=== PATIENT | female | born 1980 | race African-American/Black ===

== ENCOUNTER 2017-10-11 08:28 | Observation (INO) ==
[2017-10-11] MEDS ORDERED: ASPIRIN 325 MG TABLET PO STA (08:58)
[2017-10-11] MEDS ORDERED: ONDANSETRON 4 MG/2 ML VIAL IV PRN ×2 (08:58→11:42)
[2017-10-11] MEDS ORDERED: KETOROLAC 30 MG/1 ML VIAL IV STA (08:58)
[2017-10-11] MEDS ORDERED: SODIUM CHLORIDE 0.9% 1,000 ML IV STA (09:04)
[2017-10-11 09:29] LABS: Basophils % 0.4 % (0.0-0.8); Eosinophils # 0.2 10*3/uL (0.0-0.87); Eosinophils % 2.3 % (0.00-10.9); Hematocrit 35.8 VOL% (35.7-47.0); Hemoglobin 12.1 GM/DL (12.0-16.0); Immature Granulocytes % 0.1 %; Immature Granulocytes Absolute 0.01 #; Lymphocytes # 3.4 10*3/uL (1.4-4.0); Lymphocytes % 49.4 % (21.3-54.2); Mean Corpuscular HGB Conc 33.8 GM/DL (32-36); Mean Corpuscular Hemoglobin 30 PG (27-34); Mean Corpuscular Volume 88.8 FL (87-102); Mean Platelet Volume 11.7 FL (9.6-12.0); Monocytes # 0.6 10*3/uL (0.11-0.8); Monocytes % 8.2 % (1.7-12.7); Neutrophils # 2.8 10*3/uL (1.4-7.4); Neutrophils % 39.6 % (38.7-73.9); Platelet Count 187 T/CUMM (130-400); Red Blood Count 4.03 MC/CUMM (3.8-5.5); Red Cell Distribution Width 12.2 % (9.3-17.3)
[2017-10-11 09:47] LABS: Bilirubin,Total 0.8 MG/DL (0.2-1.0); Calcium 8.5 MG/DL (8.5-10.1); Osmolality,Calculated 276.5 MOS/KG (273-304); Potassium 3.5 MMOL/L (3.5-5.1); Total Protein 6.8 G/DL (6.4-8.3)
[2017-10-11 09:52] LABS: PT Patient Result 10.4 SECS; Partial Thromboplastin Time 26.9 SECS (0-40)
[2017-10-11 10:08] LABS: Apearance,Urine Slightly Hazy (Clear); Bacteria,Urine Occasional /HPF (Few); Bilirubin,Urine Negative (Negative); Blood, Urine Moderate mg/dL (Negative); Glucose,Urine (UA) Negative (Negative); Ketones,Urine Negative (Negative); Mucus,Urine Occasional /LPF (Occasional); Nitrite,Urine Negative (Negative); Protein,Urine 30 MG/DL; RBC,Urine 51 /HPF (0-4); Squamous Epithelial Cell,Urine Occasional /HPF (0-10); Urine Color Yellow (Yellow); Urine Specific Gravity 1.018 (1.001-1.035); WBC,Urine 2 /HPF (0-6)
[2017-10-11 10:36] LABS: Barbiturates Screen,Urine Negative (Negative); Benzodiazepines Screen,Urine Negative (Negative); Cannabinoid Screen,Urine Positive (Negative); Opiate Screen,Urine Negative (Negative); Phencyclidine Screen,Urine Negative (Negative)
[2017-10-11] MEDS ORDERED: ALUM/MAG/SIMETH/LIDO VISC 1:1 30 ML BOTTLE PO STA (11:14)
[2017-10-11] MEDS ORDERED: ALUM/MAG/SIMETH/LIDO VISC 1:1 30 ML BOTTLE PO PRN (11:42)
[2017-10-11] MEDS: PANTOPRAZOLE 40 MG TABLET PO SCH (14:01)
[2017-10-11] MEDS: ENOXAPARIN 40 MG/0.4 ML SYRINGE SUBCUT SCH (14:01)
[2017-10-11] MEDS: ACETAMINOPHEN 325 MG TABLET PO PRN (20:15)
[2017-10-12 05:17] LABS: Basophils % 0.6 % (0.0-0.8); Eosinophils # 0.2 10*3/uL (0.0-0.87); Hematocrit 37.7 VOL% (35.7-47.0); Hemoglobin 12.6 GM/DL (12.0-16.0); Immature Granulocytes % 0.4 %; Immature Granulocytes Absolute 0.02 #; Lymphocytes % 54.8 % (21.3-54.2); Mean Corpuscular HGB Conc 33.4 GM/DL (32-36); Mean Corpuscular Hemoglobin 30 PG (27-34); Mean Corpuscular Volume 88.7 FL (87-102); Mean Platelet Volume 11.2 FL (9.6-12.0); Monocytes # 0.4 10*3/uL (0.11-0.8); Monocytes % 7.6 % (1.7-12.7); Neutrophils # 1.8 10*3/uL (1.4-7.4); Neutrophils % 33.6 % (38.7-73.9); Platelet Count 184 T/CUMM (130-400); Red Blood Count 4.25 MC/CUMM (3.8-5.5); Red Cell Distribution Width 12.3 % (9.3-17.3); White Blood Count 5.4 T/CUMM (4-12)
[2017-10-12 06:01] LABS: Calcium 8.5 MG/DL (8.5-10.1); Osmolality,Calculated 279.3 MOS/KG (273-304); Potassium 3.7 MMOL/L (3.5-5.1); Risk Ratio 3.71; Thyroid Stimulating Hormone 1.29 uIU/ml (0.358-3.74); VLDL CHOLESTEROL 23.6 MG/DL
[2017-10-12 06:33] LABS: Band Neutrophils 2 % (0-10); Lymphocytes 59 % (20-55); Platelet Estimate Normal; Segmented Neutrophils 35 % (50-85); Total Cells Counted 100
[2017-10-12] MEDS ORDERED: ASPIRIN EC 81 MG TABLET PO SCH (09:00)
[2017-10-12] MEDS: ACETAMINOPHEN 325 MG TABLET PO PRN (09:16)
[2017-10-12] MEDS: PANTOPRAZOLE 40 MG TABLET PO SCH (09:16)
[2017-10-12] MEDS ORDERED: KETOROLAC 30 MG/1 ML VIAL IV ONE (11:00)
[2017-10-12] MEDS: ENOXAPARIN 40 MG/0.4 ML SYRINGE SUBCUT SCH (13:09)
[2017-10-12 15:59] VITALS: BP 135/97
== END 2017-10-12 17:00 | disposition home or self-care (01) ==
LOC: N.EDINP 08:28 → N.ED 08:28 → N.2W 12:48 → N.TELEN 15:26
PROVIDERS: ADMIT Internal Medicine; ATTEND Internal Medicine